=== PATIENT | female | born 1950 | race Caucasian/White ===

== ENCOUNTER 2016-11-03 00:07 | Emergency (ER) | payer MEDICARE, OTHER ==
[2016-11-03] MEDS ORDERED: NITROGLYCERIN 0.4 MG/TAB BTL SL ONE (00:48)
--- NOTE | 2016-11-03 00:49 | ERNOTE ---
Chest Pain/Cardiac HPI Chief Complaint: Chest Pain Time Seen by Provider: 11/03/16 00:35 Source: patient Exam Limitations: no limitations Immunizations: IMMUNIZATION HX Immunizations Up to Date Yes History of Influenza Vaccine Yes Hx Pneumococcal Vaccination No Allergies/Adverse Reactions: Allergies Penicillins Allergy (Severe, Verified 06/26/16 10:22) hives, swelling of throat Sulfa (Sulfonamide Antibiotics) [Sulfa(Sulfonamide Antibiotics)] Allergy (Severe , Verified 06/26/16 10:22) Swelling of Throat, hives levofloxacin [From Levaquin] Allergy (Mild, Verified 06/26/16 10:22) Hives quetiapine fumarate [From Seroquel] Allergy (Mild, Verified 06/26/16 10:22) Hives strawberry [[place]] Allergy (Mild, Verified 06/26/16 10:22) Hives acetaminophen [From Percocet] Adverse Reaction (Mild, Verified 06/26/16 10:22) n/v hydrocodone bitartrate [From Vicodin] Adverse Reaction (Mild, Verified 06/26/16 10:22) Nausea, feels "bad" oxycodone HCl [From Percocet] Adverse Reaction (Mild, Verified 06/26/16 10:22) n/v pravastatin sodium [From Pravachol] Adverse Reaction (Mild, Verified 06/26/16 10 :22) Muscle Weakness Srgkrfs-Uqp-Krf Reductase Inhibitor Adverse Reaction (Mild, Verified 06/26/16 10 :22) muscle weakness tetracycline [Tetracycline] Adverse Reaction (Mild, Verified 06/26/16 10:22) sores in tongue Home Medications: HOME MEDICATIONS Carvedilol [Coreg] 12.5 mg PO BID 12/23/12 [Last Taken 02/12/14] Mometasone Furoate [Nasonex] 2 puff NS PRN PRN 12/23/12 [Last Taken 02/12/14] Topiramate [Topamax] 50 mg PO BID 08/07/14 [Last Taken Unknown] Pramipexole Di-HCl [Mirapex] 0.5 mg PO HS 12/05/15 [Last Taken Unknown] Insulin Detemir [Levemir] 20 unit SQ BID 02/03/16 [Last Taken Unknown] Furosemide [Lasix] 20 mg PO DAILY 02/04/16 [Last Taken Unknown] Insulin Aspart [Novolog] 12 units SQ AC 02/04/16 [Last Taken Unknown] Lisinopril [Zestril] 10 mg PO DAILY 02/04/16 [Last Taken Unknown] Aspirin [Aspirin Enteric Coated] 325 mg PO DAILY 02/09/16 [Last Taken Unknown] Blood Sugar Diagnostic, Drum [Accu-Chek Compact] 1 each MC QID 02/09/16 [Last Taken Unknown] Dextran 70/Hypromellose [Artificial Tears Eye Drops] 1 drop OP PRN PRN 02/09/16 [Last Taken Unknown] Multivitamins [Multivitamin Esme] 1 cap PO DAILY 02/09/16 [Last Taken Unknown] Albuterol Sulfate [Ventolin HFA] 2 puff IH Q6H PRN 06/26/16 [Last Taken Unknown] traMADol HCL [Ultram] 50 mg PO BID PRN 06/26/16 [Last Taken Unknown] Narrative: Pt states that she has had mild (2-3/10) chest pressure for 2 days, but this afternoon it increased to 8-9/10. Timing: constant, getting worse Severity/Quality: severe, pressure Location: substernal, epigastric, shoulder, back Chest Pain Radiation: neck, shoulders, back Activities at Onset: none Modifying Factors - Improves: Present: nothing Nitro Today/Relief: no nitro taken today Aspirin Treatment Today: 325 mg x 1 Associated Symptoms: Absent: diaphoresis Prior Chest Pain/Cardiac Workup: Reports: heart attack Review of Systems - Review of Systems Constitutional: Absent: recent illness EYE: Present: no symptoms reported ENT: Present: nose congestion Respiratory: Present: no symptoms reported Cardiology: Present: See HPI Gastrointestinal/Abdominal: Absent: nausea Genitourinary: Present: no symptoms reported Skin: Absent: rash Neurological: Absent: numbness, tingling Endocrine: Absent: excessive sweating Hematologic/Lymphatic: Present: no symptoms reported Psych: Present: no symptoms reported - Patient's Past Medical History Patient History - Medical: Diabetes Type 2 Insulin Dependent, Headache, Osteoarthritis Patient History - Cardiac/Respiratory: Asthma, Coronary Heart Disease, COPD, Hyperlipidemia, Myocardial Infarction, Peripheral Vascular Disease Patient History - Cancer: No Hx of Cancer Patient History - Surgical Procedures: Cataracts, Cardiac stent, Ear Tubes, T & A LMP (females 10-50): Menopausal - Family History Mother Family History - Medical: Family History - Cardiac/Respiratory: Myocardial Infarction Father Family History - Medical: , No pertinent hx Family History - Cardiac/Respiratory: Myocardial Infarction Brother Family History - Medical: Family History - Cardiac/Respiratory: No pertinent hx Family History - Cancer: Stomach - Social History Living Situations: alone Have you smoked in the past 12 months: Yes Do you dip or chew tobacco: No Alcohol Use: none Drug Use: none Physical Exam - Physical Exam General Appearance: Present: wd/wn, alert, no apparent distress Eye Exam: Normal inspection: bilateral Neck: Present: normal inspection, nontender Respiratory: Present: no respiratory distress, normal breath sounds, no accessory muscle use, chest nontender, lungs clear Cardiovascular/Chest: Present: regular rate, rhythm, no murmur, normal peripheral pulses Gastrointestinal/Abdominal: Present: normal bowel sounds, nontender, nondistended Neurological Exam: Present: alert, oriented, normal mood/affect, no motor/ sensory deficits Skin Exam: Present: normal color, warm/dry Lymphatic Exam: Present: no adenopathy ED Progress - Results and Orders Patient's Lab Results:: I have reviewed the patient's lab results. Results and Orders: Laboratory Tests 11/03/16 11/03/16 11/03/16 00:43 00:43 02:52 WBC 8.2 Hgb 12.6 Hct 38.5 Plt Count 224 Sodium 139 Potassium 3.6 Chloride 100 Carbon Dioxide 27.3 Anion Gap 15.3 H BUN 26 H D Creatinine 1.46 H Random Glucose 339 H Calcium 8.8 Calcium Adj for Albumin 9.0 Total Bilirubin 0.2 AST 17 ALT 23 Alkaline Phosphatase 73 Troponin I 0.214 H* 0.353 H* Total Protein 6.5 Albumin 3.4 - Vital Signs Patient's Vital Signs:: I have reviewed the patient's vital signs. Vital Signs: Vital Signs 11/03/16 11/03/16 00:08 00:22 Temperature 36.2 C L Pulse Rate 61 60 Respiratory 18 Rate Blood Pressure 142/55 O2 Sat by Pulse 98 Oximetry - EKG EKG: NSR, nonspecific ST T wave changes EKG read: Interp. by me - X-Ray X-Ray #1 X-Ray: chest Interpretation: Interp. by me X-ray Comments: some scarring or atalectasis RLL. no infiltrate or edema - Progress/Reassessment Chief Complaint: Chest Pain Progress:: Improved Progress Note-Subjective: 11/03/16 02:53 She states she feels better than on presentation but she states that walking to the bathroom made it worse again 11/03/16 02:54 notified pt of mildly elevated Troponin and repeat level planned 11/03/16 03:54 Notified pt of rising troponin level. Agrees to transfer to [facility] for cardiology. Spoke with Dr. Honeycutt at [facility] and he agrees to accept the patient. Departure - Departure Clinical Impression: NSTEMI (non-ST elevated myocardial infarction) Disposition: [facility] Condition: Fair
[2016-11-03] MEDS: NITROGLYCERIN 0.4 MG/TAB BTL SL PRN ×3 (00:51→01:58)
[2016-11-03 01:03] LABS: Hematocrit 38.5 % (37.0-47.0); Hemoglobin 12.6 gm/dL (12.5-16.0); Mean Cell Volume 89.5 fl (78-100); Mean Corpuscular Hemoglobin 29.3 pg (27-31); Mean Corpuscular Hgb Conc 32.7 g/dl (32-36); Mean Platelet Volume 9.1 fl (6.0-9.5); Neutrophil # 4.6 K/mm3 (1.3-6.0); Neutrophil % 56.6 % (42-75.0); Platelet Count 224 K/mm3 (150-450); Red Cell Distribution Width 13.7 % (11.5-14.0); White Blood Count 8.2 K/mm3 (4.0-10.5)
[2016-11-03 01:20] LABS: Albumin * 3.4 gm/dl (3.4-5.0); Anion Gap 15.3 mmol/L (6.8-13.8); BUN/Creatinine Ratio 17.8 (9.0-21.6); Bilirubin, Total 0.2 mg/dL (0.0-1.1); Calcium * 8.8 mg/dL (7.9-10.9); Carbon Dioxide 27.3 mmol/L (24-32.6); Potassium 3.6 mmol/L (3.4-4.6); Total Protein 6.5 gm/dL (6.2-8.2)
[2016-11-03 01:25] LABS: Troponin I 0.214 ng/ml (0.00-0.10)
[2016-11-03] MEDS ORDERED: NITROGLYCERIN IN 5 % DEXTROSE 50 MG/250 ML INFUS..BTL IV PRN (03:54)
[2016-11-03 04:50] VITALS: BP 147/60
== END 2016-11-03 04:48 | disposition short-term general hospital (02) ==
LOC: ER 00:07
DX: I21.4 Non-ST elevation (NSTEMI) myocardial infarction (principal); F17.210 Nicotine dependence, cigarettes, uncomplicated; Z78.0 Asymptomatic menopausal state; Z95.5 Presence of coronary angioplasty implant and graft; E11.9 Type 2 diabetes mellitus without complications; Z79.4 Long term (current) use of insulin; J44.9 Chronic obstructive pulmonary disease, unspecified

== ENCOUNTER 2016-11-20 13:16 | Observation (INO) | payer MEDICARE, OTHER ==
[2016-11-20 13:48] LABS: Hematocrit 40.8 % (37.0-47.0); Hemoglobin 12.9 gm/dL (12.5-16.0); Mean Cell Volume 93.2 fl (78-100); Mean Corpuscular Hemoglobin 29.5 pg (27-31); Mean Corpuscular Hgb Conc 31.6 g/dl (32-36); Mean Platelet Volume 9.7 fl (6.0-9.5); Neutrophil # 2.9 K/mm3 (1.3-6.0); Neutrophil % 61.9 % (42-75.0); Platelet Count 153 K/mm3 (150-450); Red Blood Count 4.38 M/mm3 (4.2-5.4); Red Cell Distribution Width 13.9 % (11.5-14.0); White Blood Count 4.7 K/mm3 (4.0-10.5)
[2016-11-20 14:06] LABS: Albumin * 3.4 gm/dl (3.4-5.0); Anion Gap 10.4 mmol/L (6.8-13.8); BUN/Creatinine Ratio 17.2 (9.0-21.6); Bilirubin, Total 0.3 mg/dL (0.0-1.1); Calcium * 8.8 mg/dL (7.9-10.9); Carbon Dioxide 28.3 mmol/L (24-32.6); Potassium 3.7 mmol/L (3.4-4.6); Total Protein 6.9 gm/dL (6.2-8.2); Troponin I 0.027 ng/ml (0.00-0.10)
[2016-11-20] MEDS ORDERED: NORMAL SALINE 500 ML IV ONE (14:13)
[2016-11-20 15:59] LABS: Urine Amorphous Sediment Many - 3+ (NONE-FEW); Urine Appearance Clear; Urine Bacteria None Seen; Urine Bilirubin Negative (NEGATIVE); Urine Blood 10 /ul (NEGATIVE); Urine Color Yellow; Urine Ketone Negative (NEGATIVE); Urine Nitrite Negative (NEGATIVE); Urine Protein Negative (NEGATIVE); Urine RBC 0-5 /hpf (0-5); Urine Specific Gravity >=1.030 SP.GR. (1.005-1.010); Urine Urobilinogen Normal (NORMAL); Urine WBC None Seen /hpf (0-5); Urine pH 5.5 pH (5.0-7.0)
[2016-11-20] MEDS ORDERED: ALBUTEROL SULFATE/IPRATROPIUM 3 ML NEBU IH ONE ×2 (16:32→16:36)
--- NOTE | 2016-11-20 17:29 | ERNOTE ---
Medical Problem HPI - Narrative Date of Service: 11/20/16 - General Chief Complaint: Diabetes Related Problem Time Seen by Provider: 11/20/16 13:22 Source: patient Exam Limitations: no limitations - Immun/Allergies/Home Medications Immunizations: IMMUNIZATION HX Immunizations Up to Date Yes History of Influenza Vaccine Yes Hx Pneumococcal Vaccination No Allergies/Adverse Reactions: Allergies Penicillins Allergy (Severe, Verified 11/20/16 13:23) hives, swelling of throat Sulfa (Sulfonamide Antibiotics) [Sulfa(Sulfonamide Antibiotics)] Allergy (Severe , Verified 11/20/16 13:23) Swelling of Throat, hives levofloxacin [From Levaquin] Allergy (Mild, Verified 11/20/16 13:23) Hives quetiapine fumarate [From Seroquel] Allergy (Mild, Verified 11/20/16 13:23) Hives strawberry [[place]] Allergy (Mild, Verified 11/20/16 13:23) Hives acetaminophen [From Percocet] Adverse Reaction (Mild, Verified 11/20/16 13:23) n/v hydrocodone bitartrate [From Vicodin] Adverse Reaction (Mild, Verified 11/20/16 13:23) Nausea, feels "bad" oxycodone HCl [From Percocet] Adverse Reaction (Mild, Verified 11/20/16 13:23) n/v pravastatin sodium [From Pravachol] Adverse Reaction (Mild, Verified 11/20/16 13 :23) Muscle Weakness Gazvqoz-Ley-Gfq Reductase Inhibitor Adverse Reaction (Mild, Verified 11/20/16 13 :23) muscle weakness tetracycline [Tetracycline] Adverse Reaction (Mild, Verified 11/20/16 13:23) sores in tongue Home Medications: HOME MEDICATIONS Carvedilol [Coreg] 12.5 mg PO BID 12/23/12 [Last Taken 02/12/14] Mometasone Furoate [Nasonex] 2 puff NS PRN PRN 12/23/12 [Last Taken 02/12/14] Topiramate [Topamax] 50 mg PO BID 08/07/14 [Last Taken Unknown] Pramipexole Di-HCl [Mirapex] 0.5 mg PO HS 12/05/15 [Last Taken Unknown] Insulin Detemir [Levemir] 20 unit SQ BID 02/03/16 [Last Taken Unknown] Furosemide [Lasix] 20 mg PO DAILY 02/04/16 [Last Taken Unknown] Insulin Aspart [Novolog] 12 units SQ AC 02/04/16 [Last Taken Unknown] Lisinopril [Zestril] 10 mg PO DAILY 02/04/16 [Last Taken Unknown] Aspirin [Aspirin Enteric Coated] 325 mg PO DAILY 02/09/16 [Last Taken Unknown] Blood Sugar Diagnostic, Drum [Accu-Chek Compact] 1 each MC QID 02/09/16 [Last Taken Unknown] Dextran 70/Hypromellose [Artificial Tears Eye Drops] 1 drop OP PRN PRN 02/09/16 [Last Taken Unknown] Multivitamins [Multivitamin Esme] 1 cap PO DAILY 02/09/16 [Last Taken Unknown] Albuterol Sulfate [Ventolin HFA] 2 puff IH Q6H PRN 06/26/16 [Last Taken Unknown] traMADol HCL [Ultram] 50 mg PO BID PRN 06/26/16 [Last Taken Unknown] - History of Present History Narrative: Patient presents to the ED with low blood sugar. Blood sugar 34. She was not responding appropriately and now is improved with dextrose. She has been sick for a week or so with cough which has been severe. Wheezing. She relates dizziness and is noted to be SOB with movement. She has not seen anyone else for this. Has not started any new medications for this. Timing: other - BS improved. Cough and SOB getting worse. Severity: moderate Modifying Factors - (Improves): Present: other - BS improved with dextrose Modifying Factors - (Worsens): Present: other - SOB worse with exertion Review of Systems - Review of Systems Constitutional: Absent: fever Respiratory: Present: shortness of breath, cough Cardiology: Present: other - recnet heart attack per patient. Absent: chest pain Gastrointestinal/Abdominal: Present: other - abdomen feels bloated. Genitourinary: Absent: dysuria All Other Systems: All systems neg except as marked - Patient's Past Medical History Patient History - Medical: Diabetes Type 2 Insulin Dependent, Headache, Osteoarthritis Patient History - Cardiac/Respiratory: COPD, Myocardial Infarction Patient History - Cancer: No Hx of Cancer Patient History - Surgical Procedures: Cataracts, Cardiac stent, Ear Tubes, T & A Patient History - Other: None LMP (females 10-50): Menopausal - Family History Mother Family History - Medical: Family History - Cardiac/Respiratory: Myocardial Infarction Father Family History - Medical: , No pertinent hx Family History - Cardiac/Respiratory: Myocardial Infarction Brother Family History - Medical: Family History - Cardiac/Respiratory: No pertinent hx - Social History Living Situations: home Alcohol Use: none Drug Use: none - Immunizations Immunizations Up to Date: Yes Hx Pneumococcal Vaccination: No History of Influenza Vaccine: Yes Physical Exam - Physical Exam General Appearance: Present: alert, no apparent distress Eye Exam: Normal inspection: bilateral, PERRL: bilateral Ears, Nose, Throat: Present: normal ENT inspection. Absent: pharyngeal swelling Neck: Present: normal inspection Respiratory: Present: no respiratory distress, wheezing, other - wheezing throughout Cardiovascular/Chest: Present: regular rate, rhythm, normal peripheral pulses Gastrointestinal/Abdominal: Present: normal bowel sounds, other - mild upper abdominal tenderness Back Exam: Present: normal range of motion. Absent: CVA tenderness (R), CVA tenderness (L) Extremity Exam: Present: other - no calf tenderness Neurological Exam: Present: alert, normal mood/affect, other - no acute focal motor or sensory deficits Skin Exam: Absent: skin rash ED Progress - Results and Orders Patient's Lab Results:: I have reviewed the patient's lab results. - Vital Signs Patient's Vital Signs:: I have reviewed the patient's vital signs. Vital Signs: Vital Signs 11/20/16 11/20/16 11/20/16 13:16 13:18 13:19 Pulse Rate 52 L 52 L 52 L Respiratory 18 12 Rate Blood Pressure 80/41 80/41 O2 Sat by Pulse 93 91 Oximetry 11/20/16 11/20/16 11/20/16 13:24 13:25 13:51 Pulse Rate 52 L 51 L 73 Respiratory 18 17 Rate Blood Pressure 92/44 87/49 O2 Sat by Pulse 91 93 Oximetry 11/20/16 11/20/16 11/20/16 14:06 14:23 14:38 Pulse Rate 51 L 43 L 50 L Respiratory 16 12 8 L Rate Blood Pressure 81/42 83/44 98/41 O2 Sat by Pulse 91 92 94 Oximetry 11/20/16 11/20/16 11/20/16 14:52 15:23 15:39 Pulse Rate 50 L 57 L 53 L Respiratory 17 15 21 H Rate Blood Pressure 93/44 102/41 125/55 O2 Sat by Pulse 91 92 91 Oximetry 11/20/16 11/20/16 11/20/16 15:53 16:20 16:44 Pulse Rate 54 L 53 L 52 L Respiratory 16 11 L 16 Rate Blood Pressure 112/75 117/43 O2 Sat by Pulse 91 91 98 Oximetry - EKG EKG: other - Sinus Bradycardia. Non-specific ST/T wave changes, no STEMI EKG read: Interp. by me - X-Ray X-Ray #1 X-Ray: chest Interpretation: Reviewed by me X-ray Comments: I reviewed formal x-ray report - Progress/Reassessment Chief Complaint: Diabetes Related Problem Progress Note-Subjective: 11/20/16 17:27 Pt with wheezing despite Duoneb. Sats drop to upper 80s with exertion. She refuses IV steroids. No pneumoni. Dehydration treated with IV fluids. With on -going wheezing and hypoxia will admit obs. D/W Dr Sheridan who will admit. Departure - Departure Clinical Impression: Hypoglycemia, COPD exacerbation Disposition: [facility] Condition: Stable
[2016-11-20] MEDS ORDERED: NITROGLYCERIN 0.4 MG/TAB BTL SL PRN (19:29)
[2016-11-20] MEDS ORDERED: MOMETASONE FUROATE 120 SPRAY INHALER NS PRN (19:29)
[2016-11-20] MEDS ORDERED: traMADol HCL 50 MG TABLET PO PRN (19:29)
[2016-11-20] MEDS ORDERED: ALBUTEROL SULFATE 2.5 MG/0.5 ML VIAL.NEB IH PRN (19:34)
[2016-11-20] MEDS ORDERED: ALBUTEROL SULFATE/IPRATROPIUM 3 ML NEBU IH SCH (19:45)
[2016-11-20] MEDS ORDERED: CARVEDILOL 6.25 MG TABLET ONE (20:05)
[2016-11-20] MEDS: NORMAL SALINE 1,000 ML IV PRN (20:11)
[2016-11-20] MEDS: TOPIRAMATE 50 MG TABLET PO SCH (20:11)
[2016-11-20] MEDS: CARVEDILOL 12.5 MG TABLET PO SCH (20:11)
[2016-11-20] MEDS: PRAMIPEXOLE DI-HCL 0.5 MG TABLET PO SCH (20:12)
--- NOTE | 2016-11-20 20:33 | HP ---
<Leonela Martínez - Last Filed: 11/21/16 04:26> Chief Complaint - Chief Complaint Date of Service: 11/20/16 Time of Service: 19:45 Chief Complaint: "SOB, Coughing, Low blood sugar". Source of HPI- Pt; unreliable, ER provider notes. History of Present Illness: Ms. Crouch is a 66-yr-old WM pt of Dr. Brennen Britton with a PMH of: Asthma , CAD, COPD, DM II, HLD, [place], BRIT, PVD & Osteoathritis. Pt is not quite a precise historian in relaying the chronological events of sickness. She remembers that while checking her blood sugar this morning at around 10.30 am, she became unconscious. Her two nieces who happened to have stayed overnight with her called the EMS and she was brought to the [facility] ER. The EMS found her BS to be 34. She was given Dextrose which improved her BS and she was able to respond. During physical emanation, she appears to have nasal congestion, but cannot tell me how long she has been unwell with the cold-like symptoms. She reports feeling SOB but says that she is always dyspneic and cannot state if it' s any worse than usual. She has a productive cough and she is able to bring up thick yellow phlegm but, denies noting any increase of sputum production. ER notes show that she has been ill for about 1 week and has had worsening cough. She reported having some wheezing too. She denies fevers & chills. She also denies n/v, diarrhea and abd. pain. The CXR obtained in ED did not have any acute cardiopulmonary findings. The hematology lab work was also unremarkable. UA did not show any infection. However, her BUN/CR was elevated at 38/2.21. She will be admitted under observation status to ensure she does not suffer any hypoglycemic events, to correct her TANNER and monitor for any deterioration from COPD. - Patient's Past Medical History Patient History - Medical: Diabetes Type 2 Insulin Dependent, Depression, Headache, Osteoarthritis, Other - Asthma, PVD, BRIT Patient History - Cardiac/Respiratory: COPD, Hypertension, Hyperlipidemia, Myocardial Infarction Patient History - Cancer: No Hx of Cancer Patient History - Surgical Procedures: Cataracts, Cardiac stent, Ear Tubes, T & A Patient History - Other: None LMP (females 10-50): Menopausal - Family History Mother Family History - Medical: Family History - Cardiac/Respiratory: Myocardial Infarction Father Family History - Medical: , No pertinent hx Family History - Cardiac/Respiratory: Myocardial Infarction Brother Family History - Medical: Family History - Cardiac/Respiratory: No pertinent hx - Social History Living Situations: alone Smoking Status: Former smoker Have you smoked in the past 12 months: Yes Do you dip or chew tobacco: No Smoking Stop Date: 11/03/16 Patient requests Smoking Cessation Consult: No Initiate information on Smoking Cessation: No Alcohol Use: none Drug Use: none - Immunizations Immunizations Up to Date: Yes Hx Pneumococcal Vaccination: Yes History of Influenza Vaccine: Yes Review Of Systems (GEN) - Review of Systems Generalized/Overall Review: Absent: Chills, Fever, Diaphoresis EENTM: Present: Tearing, Nose Pain, Nose Congestion. Absent: Eye Pain, Blurred Vision Respiratory: Present: Cough, Shortness of Breath Cardiac: Absent: Chest Pain, Edema, Palpitations Abdominal: Absent: Nausea, Vomiting, Hematemesis, Abdominal Pain, Constipation, Diarrhea Genitourinary: Absent: Burning, Itching, Urgency, Hematuria Musculoskeletal: Absent: Joint Pain, Back Pain, Joint Swelling Neurological: Absent: Headache, Anxiety, Depressed, Numbness, Tremors Skin: Absent: Dryness, Lesions, Lumps, Bruising Endocrine: Absent: Intolerance to Cold, Intolerance to Heat, Increased Hunger, Increased Thirst Misc: All systems neg except as marked Immunizations: IMMUNIZATION HX Immunizations Up to Date Yes History of Influenza Vaccine Yes Hx Pneumococcal Vaccination No Allergies/Adverse Reactions: Allergies Allergy/AdvReac Type Severity Reaction Status Date / Time Penicillins Allergy Severe hives, Verified 11/20/16 13:23 swelling of throat Sulfa (Sulfonamide Allergy Severe Swelling Verified 11/20/16 13:23 Antibiotics) of Throat, [Sulfa(Sulfonamide hives Antibiotics)] levofloxacin [From Levaquin] Allergy Mild Hives Verified 11/20/16 13:23 quetiapine fumarate Allergy Mild Hives Verified 11/20/16 13:23 [From Seroquel] strawberry [[place]] Allergy Mild Hives Verified 11/20/16 13:23 acetaminophen [From Percocet] AdvReac Mild n/v Verified 11/20/16 13:23 hydrocodone bitartrate AdvReac Mild Nausea, Verified 11/20/16 13:23 [From Vicodin] feels "bad" oxycodone HCl [From Percocet] AdvReac Mild n/v Verified 11/20/16 13:23 pravastatin sodium AdvReac Mild Muscle Verified 11/20/16 13:23 [From Pravachol] Weakness Otywfah-Ojr-Gnl Reductase AdvReac Mild muscle Verified 11/20/16 13:23 Inhibitor weakness tetracycline [Tetracycline] AdvReac Mild sores in Verified 11/20/16 13:23 tongue Home Medications: HOME MEDICATIONS Carvedilol [Coreg] 12.5 mg PO BID 12/23/12 [Last Taken 11/19/16] Mometasone Furoate [Nasonex] 2 puff NS PRN PRN 12/23/12 [Last Taken 11/19/16] Topiramate [Topamax] 50 mg PO BID 08/07/14 [Last Taken 11/19/16] Pramipexole Di-HCl [Mirapex] 0.5 mg PO HS 12/05/15 [Last Taken 11/19/16] Insulin Detemir [Levemir] 20 unit SQ BID 02/03/16 [Last Taken 11/19/16] Furosemide [Lasix] 20 mg PO DAILY 02/04/16 [Last Taken 11/19/16] Insulin Aspart [Novolog] 12 units SQ AC 02/04/16 [Last Taken 11/19/16] Lisinopril [Zestril] 10 mg PO DAILY 02/04/16 [Last Taken 11/19/16] Aspirin [Aspirin Enteric Coated] 325 mg PO DAILY 02/09/16 [Last Taken 11/19/16] Blood Sugar Diagnostic, Drum [Accu-Chek Compact] 1 each MC QID 02/09/16 [Last Taken 11/19/16] Multivitamins [Multivitamin Esme] 1 cap PO DAILY 02/09/16 [Last Taken 11/19/16 ] Albuterol Sulfate [Ventolin HFA] 2 puff IH Q6H PRN 06/26/16 [Last Taken Unknown] traMADol HCL [Ultram] 50 mg PO BID PRN 06/26/16 [Last Taken 11/19/16] Clopidogrel Bisulfate [Plavix] 75 mg PO DAILY 11/20/16 [Last Taken 11/19/16] Niacin 100 mg PO TID 11/20/16 [Last Taken 11/19/16] Nitroglycerin [Nitrostat] 0.4 mg SL Q5MIN PRN 11/20/16 [Last Taken Unknown] Exam - Exam Vital Signs: Vital Signs - Last Taken Temp 36.5 C 11/20/16 19:28 Pulse 58 L 11/20/16 20:11 Resp 20 11/20/16 19:28 BP 140/53 11/20/16 20:11 Pulse Ox 97 11/20/16 19:28 Constitutional: Present: Alert, Oriented x3, No distress ENT Exam: Present: normal ENT inspection, nasal congestion, nasal drainage Eye Exam: bilateral eye: normal inspection, PERRL Neck: Present: full range of motion, supple, normal inspection, trachea midline Back Exam: Present: no CVA tenderness Breasts: Present: Exam deferred Respiratory: Present: lungs clear, no accessory muscle use, No wheezing Cardiovascular/Chest: Present: normal peripheral pulses, regular rate, rhythm, no murmur Abdomen: Present: Normal bowel sounds, soft, nontender, nondistended /Rectal: Present: Exam deferred Extremity: Present: non-tender, normal inspection, no pedal edema Skin Exam: Present: warm/dry, no cyanosis Lymphatic: Present: no adenopathy Neurologic: Present: no motor/sensory deficits, alert, oriented x 3, dizzy/light -headedness Appearance: Present: appropriate appearance, appropriate insight Eye contact: Present: cooperative, good eye contact, normal speech Thoughts: Present: normal thought pattern, no apparent hallucination Diagnostic Studies: Laboratory Results WBC 4.7 K/mm3 (4.0-10.5) 11/20/16 13:40 RBC 4.38 M/mm3 (4.2-5.4) 11/20/16 13:40 Hgb 12.9 gm/dL (12.5-16.0) 11/20/16 13:40 Hct 40.8 % (37.0-47.0) 11/20/16 13:40 MCV 93.2 fl (78-100) 11/20/16 13:40 MCH 29.5 pg (27-31) 11/20/16 13:40 MCHC 31.6 g/dl (32-36) L 11/20/16 13:40 RDW 13.9 % (11.5-14.0) 11/20/16 13:40 Plt Count 153 K/mm3 (150-450) 11/20/16 13:40 MPV 9.7 fl (6.0-9.5) H 11/20/16 13:40 Immature Gran % (Auto) 0.40 % (0.001-0.429) 11/20/16 13:40 Immature Gran # (Auto) 0.02 K/mm3 (0.000-0.0310) 11/20/16 13:40 Neutrophils % 61.9 % (42-75.0) 11/20/16 13:40 Lymphocytes % 24.2 % (20-51) 11/20/16 13:40 Monocytes % 12.7 % (0.0-9) H 11/20/16 13:40 Eosinophils % 0.4 % (0.0-3.0) 11/20/16 13:40 Basophils % 0.4 % (0.0-1.0) 11/20/16 13:40 Nucleated RBC % 0.0 k/mm3 (0-1) 11/20/16 13:40 Neutrophils # 2.9 K/mm3 (1.3-6.0) 11/20/16 13:40 Lymphocytes # 1.1 k/mm3 (1.5-3.5) L 11/20/16 13:40 Monocytes # 0.6 k/mm3 (0.0-1.0) 11/20/16 13:40 Eosinophils # 0.0 k/mm3 (0.0-0.7) 11/20/16 13:40 Absolute Basophils 0.0 k/mm3 (0.0-0.1) 11/20/16 13:40 Sodium 137 mmol/L (132-142) 11/20/16 13:40 Plasma Sodium 137 mmol/L (130-142) 11/20/16 13:40 Potassium 3.7 mmol/L (3.4-4.6) 11/20/16 13:40 Chloride 102 mmol/L (97-106) 11/20/16 13:40 Carbon Dioxide 28.3 mmol/L (24-32.6) 11/20/16 13:40 Anion Gap 10.4 mmol/L (6.8-13.8) 11/20/16 13:40 BUN 38 mg/dL (3-23) H 11/20/16 13:40 Creatinine 2.21 mg/dL (0.4-1.4) H D 11/20/16 13:40 Est GFR (Non-Af Amer) 23 mL/min (60-130) L D 11/20/16 13:40 BUN/Creatinine Ratio 17.2 (9.0-21.6) 11/20/16 13:40 Random Glucose 116 mg/dL (70-110) H 11/20/16 13:40 Calcium 8.8 mg/dL (7.9-10.9) 11/20/16 13:40 Calcium Adj for Albumin 9.0 mg/dL (8.4-10.2) 11/20/16 13:40 Total Bilirubin 0.3 mg/dL (0.0-1.1) 11/20/16 13:40 AST 93 U/L (0-48) H 11/20/16 13:40 ALT 39 U/L (19-67) 11/20/16 13:40 Alkaline Phosphatase 60 U/L (50-170) 11/20/16 13:40 Troponin I 0.027 ng/ml (0.00-0.10) 11/20/16 13:40 Total Protein 6.9 gm/dL (6.2-8.2) 11/20/16 13:40 Albumin 3.4 gm/dl (3.4-5.0) 11/20/16 13:40 Lipase 92 U/L (73-393) 11/20/16 13:40 Urine Color Yellow 11/20/16 15:44 Urine Appearance Clear 11/20/16 15:44 Urine pH 5.5 pH (5.0-7.0) 11/20/16 15:44 Ur Specific Mifflin >=1.030 SP.GR. (1.005-1.010) 11/20/16 15:44 Urine Protein Negative mg/dL (NEGATIVE) 11/20/16 15:44 Urine Glucose (UA) Negative mg/dL (NEGATIVE) 11/20/16 15:44 Urine Ketones Negative mg/dL (NEGATIVE) 11/20/16 15:44 Urine Blood 10 /ul (NEGATIVE) H 11/20/16 15:44 Urine Nitrate Negative (NEGATIVE) 11/20/16 15:44 Urine Bilirubin Negative mg/dl (NEGATIVE) 11/20/16 15:44 Urine Urobilinogen Normal EU/dl (NORMAL) 11/20/16 15:44 Ur Leukocyte Esterase Negative /ul (NEGATIVE) 11/20/16 15:44 Urine RBC 0-5 /hpf (0-5) 11/20/16 15:44 Urine WBC None seen /hpf (0-5) 11/20/16 15:44 Ur Epithelial Cells 0-5 /hpf (0-5) 11/20/16 15:44 Amorphous Sediment Many - 3+ (NONE-FEW) H 11/20/16 15:44 Urine Bacteria None seen (NONE) 11/20/16 15:44 Urine Culture Comments Culture to follow 11/20/16 15:44 Influenza Type A Ag Negative (NEGATIVE) 11/20/16 14:21 Influenza Type B Ag Negative (NEGATIVE) 11/20/16 14:21 Assessment/Plan - Assessment/Plan (1) COPD exacerbation Assessment: Even though pt denies any worsening cough, dyspnea & sputum production, which often require a change in treatment therapy, she is likely to be pre- disposed to exacerbation due to URI symptoms. On examination, she does not have Exp/Ins wheezing. The CXR did not show any Pneumonia and No elevated WBC on hematology. Therefore, may be okay to hold off any antibiotics or IV corticosteroids. Will utilize scheduled anticholigernic RT treatments to help with airway limitation as she required Oxygen to keep her POX level > 90%. Will also attempt to qualify her for home oxygen. Monitor CBC in am. Problem: Acute (2) Hypoglycemia Assessment: Noted to have sever hypoglycemia with a BS of 34 and unresponsiveness. Required Dextrose to show response. Needs glycemic goals to be reevaluated or raising glycemic targets reduce future episodes. Aim at pre-prandial 100-150mg/dL. Will adjust her Rapid acting and Basal insulin. Continue AC/HS accue checks. Problem: Acute (3) TANNER (acute kidney injury) Assessment: BUN/CR of 38/2.21- Likely worsened by Diuretcis and WILLY inhibitors. Will hold Lasix and Lisinopril for now and provide IVF hydration. Monitor BMP in am. Problem: Acute (4) Diabetes Assessment: Last Hg A1c 10.36 on 08/21/16. Due to the hypoglycemia episode, Rapid acting and Long acting insulin reduced by 50%. Problem: Chronic QualifierTitle: Diabetes mellitus type: type 2 (5) BRIT (obstructive sleep apnea) Assessment: Stable- Utilize CPAP. Problem: Chronic <MikiUbaldoAlfred rubio - Last Filed: 11/21/16 11:59> Immunizations: IMMUNIZATION HX Immunizations Up to Date Yes History of Influenza Vaccine Yes Hx Pneumococcal Vaccination Yes Exam - Exam Vital Signs: Vital Signs - Last Taken Temp 36.7 C 11/21/16 10:29 Pulse 57 L 11/21/16 10:29 Resp 20 11/21/16 10:29 BP 128/68 11/21/16 10:29 Pulse Ox 93 11/21/16 10:29 Diagnostic Studies: Abnormal Lab Results 11/21/16 11/21/16 Range/Units 06:10 06:10 RBC 3.83 L (4.2-5.4) M/mm3 Hgb 11.2 L (12.5-16.0) gm/dL Hct 35.0 L (37.0-47.0) % Plt Count 148 L (150-450) K/mm3 Lymphocytes # (Manual) 1.3 L (1.5-3.5) k/mm3 Atypic/Reactive Lymphs 5 H (0-2) % BUN 32 H (3-23) mg/dL Creatinine 1.57 H D (0.4-1.4) mg/dL Est GFR (Non-Af Amer) 35 L D (60-130) mL/min Random Glucose 53 L D (70-110) mg/dL Laboratory Results WBC 4.2 K/mm3 (4.0-10.5) 11/21/16 06:10 RBC 3.83 M/mm3 (4.2-5.4) L 11/21/16 06:10 Hgb 11.2 gm/dL (12.5-16.0) L 11/21/16 06:10 Hct 35.0 % (37.0-47.0) L 11/21/16 06:10 MCV 91.4 fl (78-100) 11/21/16 06:10 MCH 29.2 pg (27-31) 11/21/16 06:10 MCHC 32.0 g/dl (32-36) 11/21/16 06:10 RDW 13.8 % (11.5-14.0) 11/21/16 06:10 Plt Count 148 K/mm3 (150-450) L 11/21/16 06:10 MPV 9.3 fl (6.0-9.5) 11/21/16 06:10 Immature Gran % (Auto) 0.40 % (0.001-0.429) 11/20/16 13:40 Immature Gran # (Auto) 0.02 K/mm3 (0.000-0.0310) 11/20/16 13:40 Neutrophils % 61.9 % (42-75.0) 11/20/16 13:40 Neutrophils % (Manual) 51 % (42-75) 11/21/16 06:10 Band Neuts % (Manual) 1 % (0-2.0) 11/21/16 06:10 Lymphocytes % 24.2 % (20-51) 11/20/16 13:40 Lymphocytes % (Manual) 32 % (20-51) 11/21/16 06:10 Monocytes % 12.7 % (0.0-9) H 11/20/16 13:40 Monocytes % (Manual) 9 % (0-9) 11/21/16 06:10 Eosinophils % 0.4 % (0.0-3.0) 11/20/16 13:40 Eosinophils % (Manual) 2 % (0-3) 11/21/16 06:10 Basophils % 0.4 % (0.0-1.0) 11/20/16 13:40 Nucleated RBC % 0.0 k/mm3 (0-1) 11/20/16 13:40 Neutrophils # 2.9 K/mm3 (1.3-6.0) 11/20/16 13:40 Neutrophils # (Manual) 2.1 K/mm3 (1.3-6.0) 11/21/16 06:10 Lymphocytes # 1.1 k/mm3 (1.5-3.5) L 11/20/16 13:40 Lymphocytes # (Manual) 1.3 k/mm3 (1.5-3.5) L 11/21/16 06:10 Monocytes # 0.6 k/mm3 (0.0-1.0) 11/20/16 13:40 Monocytes # (Manual) 0.4 k/mm3 (0.0-1.0) 11/21/16 06:10 Eosinophils # 0.0 k/mm3 (0.0-0.7) 11/20/16 13:40 Eosinophils # (Manual) 0.1 k/mm3 (0.0-0.7) 11/21/16 06:10 Absolute Basophils 0.0 k/mm3 (0.0-0.1) 11/20/16 13:40 Nucleated RBCs 1.0 % (0-1) 11/21/16 06:10 Atypic/Reactive Lymphs 5 % (0-2) H 11/21/16 06:10 Platelet Estimate Normal (NORMAL) 11/21/16 06:10 RBC Morphology Normal (NORMAL) 11/21/16 06:10 Sodium 141 mmol/L (132-142) 11/21/16 06:10 Plasma Sodium 140 mmol/L (130-142) 11/21/16 06:10 Potassium 3.8 mmol/L (3.4-4.6) 11/21/16 06:10 Chloride 105 mmol/L (97-106) 11/21/16 06:10 Carbon Dioxide 27.2 mmol/L (24-32.6) 11/21/16 06:10 Anion Gap 12.6 mmol/L (6.8-13.8) 11/21/16 06:10 BUN 32 mg/dL (3-23) H 11/21/16 06:10 Creatinine 1.57 mg/dL (0.4-1.4) H D 11/21/16 06:10 Est GFR (Non-Af Amer) 35 mL/min (60-130) L D 11/21/16 06:10 BUN/Creatinine Ratio 20.4 (9.0-21.6) 11/21/16 06:10 Random Glucose 53 mg/dL (70-110) L D 11/21/16 06:10 Calcium 8.1 mg/dL (7.9-10.9) 11/21/16 06:10 Calcium Adj for Albumin 9.0 mg/dL (8.4-10.2) 11/20/16 13:40 Total Bilirubin 0.3 mg/dL (0.0-1.1) 11/20/16 13:40 AST 93 U/L (0-48) H 11/20/16 13:40 ALT 39 U/L (19-67) 11/20/16 13:40 Alkaline Phosphatase 60 U/L (50-170) 11/20/16 13:40 Troponin I 0.027 ng/ml (0.00-0.10) 11/20/16 13:40 Total Protein 6.9 gm/dL (6.2-8.2) 11/20/16 13:40 Albumin 3.4 gm/dl (3.4-5.0) 11/20/16 13:40 Lipase 92 U/L (73-393) 11/20/16 13:40 Urine Color Yellow 11/20/16 15:44 Urine Appearance Clear 11/20/16 15:44 Urine pH 5.5 pH (5.0-7.0) 11/20/16 15:44 Ur Specific M[place] >=1.030 SP.GR. (1.005-1.010) 11/20/16 15:44 Urine Protein Negative mg/dL (NEGATIVE) 11/20/16 15:44 Urine Glucose (UA) Negative mg/dL (NEGATIVE) 11/20/16 15:44 Urine Ketones Negative mg/dL (NEGATIVE) 11/20/16 15:44 Urine Blood 10 /ul (NEGATIVE) H 11/20/16 15:44 Urine Nitrate Negative (NEGATIVE) 11/20/16 15:44 Urine Bilirubin Negative mg/dl (NEGATIVE) 11/20/16 15:44 Urine Urobilinogen Normal EU/dl (NORMAL) 11/20/16 15:44 Ur Leukocyte Esterase Negative /ul (NEGATIVE) 11/20/16 15:44 Urine RBC 0-5 /hpf (0-5) 11/20/16 15:44 Urine WBC None seen /hpf (0-5) 11/20/16 15:44 Ur Epithelial Cells 0-5 /hpf (0-5) 11/20/16 15:44 Amorphous Sediment Many - 3+ (NONE-FEW) H 11/20/16 15:44 Urine Bacteria None seen (NONE) 11/20/16 15:44 Urine Culture Comments Culture to follow 11/20/16 15:44 Influenza Type A Ag Negative (NEGATIVE) 11/20/16 14:21 Influenza Type B Ag Negative (NEGATIVE) 11/20/16 14:21 Assessment/Plan - Narrative Narrative: I reviewed the record and examined the patient. I personally directed all of Leonela Martínez's care for this patient. We will adjust insulin doses, monitor labs , and give IV antibiotics. Reverse low blood sugrars. Rehydrate and improve kidney function. - Assessment/Plan (1) COPD exacerbation Problem: Acute (2) Hypoglycemia Problem: Acute (3) Diabetes Problem: Chronic Qualifiers: Diabetes mellitus type: type 2 Diabetes mellitus complication status: without complication Diabetes mellitus mcfp insulin use: with mcfp use Qualified Code(s): E11.9 - Type 2 diabetes mellitus without complications ; Z79.4 - longterm (current) use of insulin (4) BRIT (obstructive sleep apnea) Problem: Chronic (5) Adverse effects of medication Problem: Acute Qualifiers: Encounter type: initial encounter Qualified Code(s): T88.7XXA - Unspecified adverse effect of drug or medicament, initial encounter (6) Anemia Problem: Chronic Qualifiers: Anemia type: unspecified type Qualified Code(s): D64.9 - Anemia, unspecified (7) Acute worsening of stage 3 chronic kidney disease Problem: Acute
[2016-11-20] MEDS ORDERED: INSULIN DETEMIR 100 UNITS/ML VIAL SC SCH ×2 (21:00→22:00)
[2016-11-21] MEDS: ALBUTEROL SULFATE/IPRATROPIUM 3 ML NEBU IH SCH ×4 (00:13→18:24)
[2016-11-21] MEDS: NORMAL SALINE 1,000 ML IV PRN ×3 (04:33→21:33)
[2016-11-21 06:14] LABS: Hemoglobin 11.2 gm/dL (12.5-16.0); Mean Cell Volume 91.4 fl (78-100); Mean Corpuscular Hemoglobin 29.2 pg (27-31); Mean Platelet Volume 9.3 fl (6.0-9.5); Platelet Count 148 K/mm3 (150-450); Red Blood Count 3.83 M/mm3 (4.2-5.4); Red Cell Distribution Width 13.8 % (11.5-14.0); White Blood Count 4.2 K/mm3 (4.0-10.5)
[2016-11-21 06:16] LABS: Total Cells Counted 100
[2016-11-21 06:24] LABS: Anion Gap 12.6 mmol/L (6.8-13.8); BUN/Creatinine Ratio 20.4 (9.0-21.6); Calcium * 8.1 mg/dL (7.9-10.9); Carbon Dioxide 27.2 mmol/L (24-32.6); Estimated Creat Clear 24.6; Potassium 3.8 mmol/L (3.4-4.6)
[2016-11-21 06:31] LABS: Atypical (Reactive) Lymph 5 % (0-2); Band 1 % (0-2.0); Eosinophil 2 % (0-3); Lymphocyte 32 % (20-51); Monocyte 9 % (0-9); Neutrophil 51 % (42-75); Neutrophil # 2.1 K/mm3 (1.3-6.0)
[2016-11-21 06:32] LABS: Platelet Estimate Normal (NORMAL); RBC Morphology Normal (NORMAL)
[2016-11-21] MEDS ORDERED: INSULIN ASPART 100 UNITS/ML VIAL SC SCH ×2 (07:00)
[2016-11-21] MEDS: INSULIN ASPART 100 UNITS/ML VIAL SC SCH ×2 (07:53→12:24)
[2016-11-21] MEDS: TOPIRAMATE 50 MG TABLET PO SCH ×2 (08:51→20:46)
[2016-11-21] MEDS: CARVEDILOL 12.5 MG TABLET PO SCH ×2 (08:51→20:45)
[2016-11-21] MEDS: ASPIRIN 325 MG TABLET.DR PO SCH (08:51)
[2016-11-21] MEDS: MULTIVITAMINS 1 CAP CAPSULE PO SCH (08:51)
[2016-11-21] MEDS: CLOPIDOGREL BISULFATE 75 MG TABLET PO SCH (08:51)
[2016-11-21] MEDS ORDERED: LISINOPRIL 10 MG TABLET PO SCH (09:00)
--- NOTE | 2016-11-21 12:07 | PN ---
Subjective - Date and Time Seen Date: 11/21/16 Time: 08:30 Subjective Narrative: Cough and SOB better, low blood sugar better, generally overall feeling very much better. Objective - Review of Systems Generalized/Overall Review: Reports: Malaise EENTM: Reports: No Symptoms Reported Respiratory: Reports: Cough, Shortness of Breath, Wheezing Cardiac: Reports: No Symptoms Reported Abdominal: Reports: No Symptoms Reported Genitourinary Symptoms: Reports: No Symptoms Reported Musculoskeletal Complaints: Reports: No Symptoms Reported Neurological: Reports: No Symptoms Reported Skin: Reports: No Symptoms Reported Endocrine: Reports: No Symptoms Reported Misc: All systems neg except as marked - Vitals Vitals: Last Vital Signs Selected Entries 11/21/16 07:52 Temperature 36.8 C Temperature Oral Source Pulse Rate 58 L Respiratory 22 H Rate Blood Pressure 143/56 Blood Pressure Supine Position O2 Sat by Pulse 92 Oximetry Oxygen Delivery Room Air Method - Abnormal Lab Findings Abnormal Lab Findings: Abnormal Lab Results 11/21/16 11/21/16 Range/Units 06:10 06:10 RBC 3.83 L (4.2-5.4) M/mm3 Hgb 11.2 L (12.5-16.0) gm/dL Hct 35.0 L (37.0-47.0) % Plt Count 148 L (150-450) K/mm3 Lymphocytes # (Manual) 1.3 L (1.5-3.5) k/mm3 Atypic/Reactive Lymphs 5 H (0-2) % BUN 32 H (3-23) mg/dL Creatinine 1.57 H D (0.4-1.4) mg/dL Est GFR (Non-Af Amer) 35 L D (60-130) mL/min Random Glucose 53 L D (70-110) mg/dL - Exam Constitutional: Present: Alert, Oriented x3, Cooperative, Well developed, Mild distress, Obese ENT Exam: Present: normal ENT inspection, hearing grossly normal, pharynx normal Neck: Present: normal inspection Respiratory: Present: decreased breath sounds, expiration (prolonged) Cardiovascular/Chest: Present: regular rate, rhythm, no murmur Abdomen: Present: Normal bowel sounds, soft, nontender, nondistended, no rebound tenderness, no hepatospenomegaly, obese Extremity: Present: normal inspection, pedal edema Skin Exam: Present: normal color, warm/dry, no cyanosis Neurologic: Present: alert, oriented x 3 Appearance: Present: appropriate appearance, neat Eye contact: Present: cooperative, good eye contact, normal speech Thoughts: Present: normal thought pattern Assessment/Plan Plan Narrative: IV antibiotics. Breathing treatments. Follow labs. Adjust insulin and follow sugars. 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
[2016-11-21] MEDS: INSULIN DETEMIR 100 UNITS/ML VIAL SC SCH (13:33)
[2016-11-21] MEDS: INSULIN LISPRO 100 UNITS/ML VIAL SC SCH ×2 (16:42→20:45)
[2016-11-21] MEDS: PRAMIPEXOLE DI-HCL 0.5 MG TABLET PO SCH (20:46)
[2016-11-22] MEDS: INSULIN DETEMIR 100 UNITS/ML VIAL SC SCH (00:03)
[2016-11-22] MEDS: ALBUTEROL SULFATE/IPRATROPIUM 3 ML NEBU IH SCH ×2 (00:33→06:21)
[2016-11-22 06:26] VITALS: BP 175/65
[2016-11-22 06:30] LABS: Hematocrit 39.9 % (37.0-47.0); Hemoglobin 12.6 gm/dL (12.5-16.0); Mean Cell Volume 91.7 fl (78-100); Mean Corpuscular Hgb Conc 31.6 g/dl (32-36); Mean Platelet Volume 9.6 fl (6.0-9.5); Platelet Count 183 K/mm3 (150-450); Red Blood Count 4.35 M/mm3 (4.2-5.4); Red Cell Distribution Width 13.8 % (11.5-14.0); White Blood Count 4.8 K/mm3 (4.0-10.5)
[2016-11-22] MEDS: INSULIN LISPRO 100 UNITS/ML VIAL SC SCH (06:31)
[2016-11-22 06:32] LABS: Total Cells Counted 100
[2016-11-22] MEDS: NORMAL SALINE 1,000 ML IV PRN (06:37)
[2016-11-22 06:41] LABS: Anion Gap 10.8 mmol/L (6.8-13.8); BUN/Creatinine Ratio 15.4 (9.0-21.6); Calcium * 8.7 mg/dL (7.9-10.9); Carbon Dioxide 28.4 mmol/L (24-32.6); Estimated Creat Clear 31.4; Potassium 4.2 mmol/L (3.4-4.6)
[2016-11-22 06:46] LABS: Atypical (Reactive) Lymph 4 % (0-2); Band 13 % (0-2.0); Basophil 1 % (0-1); Immature Granulocyte 1 (0-1); Lymphocyte 28 % (20-51); Monocyte 5 % (0-9); Neutrophil 48 % (42-75); Neutrophil # 2.3 K/mm3 (1.3-6.0)
[2016-11-22 06:47] LABS: Hemoglobin A1C 9.8 % (4.00-6.0); Platelet Estimate Normal (NORMAL); RBC Morphology Normal (NORMAL)
--- NOTE | 2016-11-22 07:54 | DS ---
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 On 11/20/2016, while checking her blood sugar this morning at around 10.30 am, she became unconscious. Her two nieces who happened to have stayed overnight with her called the EMS and she was brought to the [facility] ER. The EMS found her BS to be 34. She was given Dextrose which improved her BS and she was able to respond. For the last few days has been unwell with the cold-like symptoms. She reported having some wheezing too. She denied fevers & chills. She also denies n/v, diarrhea and abd. pain. The CXR obtained in ED did not have any acute cardiopulmonary findings. The hematology lab work was also unremarkable. UA did not show any infection. However, her BUN /CR was elevated at 38/2.21. She was admitted under observation and was started on IVF. Her insulin dosages was adjusted. She is stable to be discharged . She did complain of of blood in her vaginal area after wiping this morning and will schedule her a Gyne consult on outpatient basis. . She says her BS have been running good with BS ranging from 80-150. She is not sure what happened as to why it went down to 35. Procedures Performed: none Discharge Disposition: Home self care Disposition: Home self-care Condition: Stable Discharge Activity: Activity as tolerated Discharge Diet: Consistent carbs Additional Patient Instructions (free text): Follow up with me in 1 week. Schedule an outpatient consult with Gynecology- blood in her wiping vaginal area. Prescriptions (Any new or edited meds): Blood Sugar Diagnostic, Drum [Accu-Chek Compact] 1 each MC BID #60 strip Insulin Detemir [Levemir] 6 units SC BID #7 vial Complete Home Medications List: Complete Home Medication List: Carvedilol [Coreg] 12.5 mg PO BID 12/23/12 Mometasone Furoate [Nasonex] 2 puff NS PRN PRN 12/23/12 Topiramate [Topamax] 50 mg PO BID 08/07/14 Pramipexole Di-HCl [Mirapex] 0.5 mg PO HS 12/05/15 Lisinopril [Zestril] 10 mg PO DAILY 02/04/16 Aspirin [Aspirin Enteric Coated] 325 mg PO DAILY 02/09/16 Multivitamins [Multivitamin Esme] 1 cap PO DAILY 02/09/16 Albuterol Sulfate [Ventolin HFA] 2 puff IH Q6H PRN 06/26/16 traMADol HCL [Ultram] 50 mg PO BID PRN 06/26/16 Clopidogrel Bisulfate [Plavix] 75 mg PO DAILY 11/20/16 Niacin 100 mg PO TID 11/20/16 Nitroglycerin [Nitrostat] 0.4 mg SL Q5MIN PRN 11/20/16 Blood Sugar Diagnostic, Drum [Accu-Chek Compact] 1 each MC BID #60 strip Insulin Detemir [Levemir] 6 units SC BID #7 vial 11/22/16
[2016-11-22] MEDS: CARVEDILOL 12.5 MG TABLET PO SCH (08:24)
[2016-11-22] MEDS: ASPIRIN 325 MG TABLET.DR PO SCH (08:24)
[2016-11-22] MEDS: MULTIVITAMINS 1 CAP CAPSULE PO SCH (08:24)
[2016-11-22] MEDS: CLOPIDOGREL BISULFATE 75 MG TABLET PO SCH (08:25)
[2016-11-22] MEDS: TOPIRAMATE 50 MG TABLET PO SCH (08:25)
== END 2016-11-22 09:33 | disposition home or self-care (01) ==
LOC: ER 13:16 → MS 17:20
PROVIDERS: ADMIT Allergy & Immunology; ATTEND Internal Medicine
DX: E16.2 Hypoglycemia, unspecified (principal); N17.9 Acute kidney failure, unspecified; J44.1 Chronic obstructive pulmonary disease with (acute) exacerbation; E11.9 Type 2 diabetes mellitus without complications; Z79.4 Long term (current) use of insulin; G47.33 Obstructive sleep apnea (adult) (pediatric); E78.5 Hyperlipidemia, unspecified; I25.2 Old myocardial infarction; J45.909 Unspecified asthma, uncomplicated; Z78.0 Asymptomatic menopausal state; Z95.1 Presence of aortocoronary bypass graft; Z79.82 Long term (current) use of aspirin; Z96.29 Presence of other otological and audiological implants; Z79.899 Other long term (current) drug therapy; Z87.891 Personal history of nicotine dependence; Z82.49 Family history of ischemic heart disease and other diseases of the circulatory system
CPT/HCPCS: 36415; 71020; 80048; 80053; 81001; 83036; 83690; 84484; 85007; 85025; 87086; 87400; 93005; 94640; 96372; 99284; G0378